=== PATIENT | male | born 1965 | race African-American/Black ===

== ENCOUNTER 2017-02-27 10:57 | Emergency (ER) | payer OTHER ==
--- NOTE | 2017-02-27 11:35 | PDOC ---
History of Present Illness - General Chief Complaint: Back Pain Stated Complaint: BACK PAIN Time Seen by Provider: 02/27/17 11:35 History Source: Patient Exam Limitations: No Limitations - History of Present Illness Initial Comments: 02/27/17 11:35 Chronic Back Pain, has an appointment with Neurology in 30 minutes, but came to ED thinking he could get an MRI for his SSI Disability hearing on . No change in his situation, being treated with robaxin and motrin. Timing/Duration: other (Ongoing for quite a long time now.) Severity: moderate Past History - Past Medical History Allergies/Adverse Reactions: Allergies Allergy/AdvReac Type Severity Reaction Status Date / Time No Known Allergies Allergy Verified 02/27/17 11:44 Home Medications: Ambulatory Orders Emtricitabine/Tenofovir [Truvada -] 1 tab PO DAILY 02/29/12 Atazanavir [Reyataz -] 200 mg PO DAILY@0800 05/14/14 Ritonavir [Norvir] 0 mg PO DAILY 05/14/14 Diazepam [Valium] 5 mg PO Q8H PRN #9 tablet MDD 15mg 11/14/15 Naproxen [Naprosyn -] 500 mg PO BID PRN #28 tablet 11/14/15 Oxycodone HCl/Acetaminophen [Percocet 5-325 mg Tablet] 1 - 2 tab PO Q6H PRN #10 tab MDD 6 11/14/15 Anemia: No Asthma: No Cancer: No Cardiac Disorders: No CVA: No COPD: No CHF: No Dementia: No Diabetes: No GI Disorders: Yes Disorders: No HTN: No Hypercholesterolemia: No Liver Disease: No Seizures: No Thyroid Disease: No - Surgical History Abdominal Surgery: No Appendectomy: No Cardiac Surgery: No Cholecystectomy: No Gastric Stapling: No GI Surgery: No Lung Surgery: No Neurologic Surgery: No Orthopedic Surgery: No - Immunization History Immunization Up to Date: Yes - Suicide/Smoking/Psychosocial Hx Smoking Status: No Smoking History: Current some day smoker Have you smoked in the past 12 months: No Number of Cigarettes Smoked Daily: 2 'Breaking Loose' booklet given: 04/27/15 Hx Alcohol Use: No Drug/Substance Use Hx: No Substance Use Type: Marijuana Hx Substance Use Treatment: No Review of Systems - Review of Systems Able to Perform ROS?: Yes Comments:: 02/27/17 11:37 Patient has to set his alarm an hour earlier than he has to get up so that he can take his medicines or else he cant get out of bed. Is the patient limited Hungarian proficient: No Constitutional: Yes: See HPI HEENTM: No: Symptoms Reported Respiratory: No: Symptoms reported Cardiac (ROS): No: Symptoms Reported ABD/GI: No: Symptoms Reported : No: Symptoms Reported Musculoskeletal: Yes: See HPI Integumentary: No: Symptoms Reported Neurological: Yes: See HPI Psychiatric: No: Anxiety, Depression Endocrine: No: Symptoms Reported Hematologic/Lymphatic: No: Symptoms Reported All Other Systems: Reviewed and Negative (patient already using a cane) *Physical Exam - Physical Exam General Appearance: Yes: Nourished, Appropriately Dressed HEENT: positive: EOMI, RADHA, Normal ENT Inspection Neck: positive: Supple Respiratory/Chest: positive: Lungs Clear, Normal Breath Sounds Cardiovascular: positive: Regular Rhythm, Regular Rate Gastrointestinal/Abdominal: positive: Normal Bowel Sounds, Flat, Soft Male Genitalia: positive: other (not done) Rectal Exam: positive: deferred Lymphatic: negative: Adenopathy, Tenderness Musculoskeletal: positive: Normal Inspection Extremity: positive: Normal Capillary Refill, Normal Inspection, Normal Range of Motion Integumentary: positive: Normal Color, Dry Neurologic: positive: Fully Oriented, Alert, Normal Mood/Affect Medical Decision Making - Medical Decision Making 02/27/17 11:42 Discussed the patient's situation, The ED does not have much if anything to offer CHRONIC PAIN. I suggested he work with his care team to resolve these ongoing issues 02/27/17 11:44 *DC/Admit/Observation/Transfer Diagnosis at time of Disposition: Chronic low back pain Qualifiers: Back pain laterality: unspecified Sciatica presence: unspecified whether sciatica present Qualified Code(s): M54.5 - Low back pain; G89.29 - Other chronic pain - Discharge Dispostion Disposition: HOME Condition at time of disposition: Improved Admit: No - Patient Instructions Printed Discharge Instructions: DI for Chronic Pain -- Adult Additional Instructions: Keep your appointment with Neurology Now
[2017-02-27] MEDS ORDERED: ONDANSETRON *ODT* 4 MG TABLET SL ONE (11:41)
[2017-02-27] MEDS ORDERED: CYCLOBENZAPRINE HCL 10 MG TABLET (FP) PO ONE (11:41)
[2017-02-27] MEDS ORDERED: ONDANSETRON *ODT* 4 MG TABLET ONE (11:47)
[2017-02-27] MEDS ORDERED: CYCLOBENZAPRINE HCL 10 MG TABLET (FP) ONE (11:47)
[2017-02-27 11:50] VITALS: BP 122/81; PULSE 60; TEMP 98.3; BMI 24.3
== END 2017-02-27 12:00 | disposition home or self-care (01) ==
LOC: JER 10:57
DX: M54.5 Low back pain (principal); G89.29 Other chronic pain; F17.210 Nicotine dependence, cigarettes, uncomplicated
CPT/HCPCS: 99282-25

== ENCOUNTER 2020-04-30 14:44 | Inpatient (IN) | payer OTHER ==
[2020-04-30 15:14] VITALS: BMI 22.1
[2020-04-30 16:33] LABS: BASO % 1.1 % (0-2.0); EOS % 3.8 % (0-4.5); HEMATOCRIT 38.6 % (35.4-49); MCH 32.3 pg (25.7-33.7); MCHC 33.6 g/dl (32.0-35.9); MEAN CELL VOLUME 96.3 fl (80-96); MEAN PLT VOLUME 8.3 fl (7.5-11.1); MONO % 14.1 % (3.8-10.2); PLATELET COUNT 252 K/MM3 (134-434); RBC 4.01 M/mm3 (4.00-5.60); RDW 13.8 % (11.9-15.9); WHITE BLOOD COUNT 5.4 K/mm3 (4.0-10.0)
[2020-04-30 16:45] LABS: INR 0.96 (0.83-1.09); PROTHROMBIN TIME (PATIENT) 11.8 SEC (9.7-13.0)
[2020-04-30 16:47] LABS: ACTIVATED PTT 29.9 SECONDS (25.2-36.5)
[2020-04-30 16:57] LABS: CHLORIDE 106 mmol/L (98-107); POTASSIUM 4.2 mmol/L (3.5-5.1); SODIUM 139 mmol/L (136-145)
[2020-04-30 17:00] LABS: CALCIUM 8.9 mg/dL (8.5-10.1)
[2020-04-30 17:01] LABS: ALBUMIN 3.5 g/dl (3.4-5.0); ANION GAP 4 MMOL/L (8-16); BLOOD UREA NITROGEN 12.9 mg/dL (7-18); CO2 28 mmol/L (21-32); GLUCOSE,RANDOM 89 mg/dL (74-106)
[2020-04-30 17:04] LABS: CREATININE 0.9 mg/dL (0.55-1.3); SGOT/AST 18 U/L (15-37); SGPT/ALT 42 U/L (13-61)
[2020-04-30 17:06] LABS: BILIRUBIN,TOTAL 0.9 mg/dL (0.2-1); TOT PROT 6.3 g/dl (6.4-8.2)
[2020-04-30 17:07] LABS: ALK PHOS 96 U/L (45-117)
[2020-04-30 17:09] LABS: N-TERMINAL BNP 30.5 pg/ml (5-125)
[2020-04-30 17:25] LABS: PLATELET ESTIMATE ADEQUATE
[2020-04-30] MEDS ORDERED: SODIUM CHLORIDE 1,000 ML IV SCH (19:00)
[2020-04-30] MEDS ORDERED: ONDANSETRON *ODT* 4 MG TABLET SL PRN (19:08)
[2020-04-30] MEDS ORDERED: HEPARIN NA (PORCINE) 5,000 UNITS/ML 1ML VIAL ONE (22:10)
[2020-04-30] MEDS: HEPARIN NA (PORCINE) 5,000 UNITS/ML 1ML VIAL SQ SCH (22:14)
[2020-05-01 05:26] LABS: URINE APPEARANCE CLEAR; URINE BILIRUBIN NEGATIVE (NEGATIVE); URINE COLOR YELLOW; URINE GLUCOSE (UA) NEGATIVE (NEGATIVE); URINE KETONE NEGATIVE (NEGATIVE); URINE LEUK ESTERASE NEGATIVE (NEGATIVE); URINE NITRITE NEGATIVE (NEGATIVE); URINE PROTEIN NEGATIVE (NEGATIVE); URINE UROBILINOGEN 0.2 mg/dL (0.2-1.0)
[2020-05-01 05:34] LABS: OPIATES, URI NEGATIVE ng/ml (CUTOFF=300); PHENCYCLIDINE,URINE NEGATIVE ng/ml (CUTOFF=25)
[2020-05-01 05:35] LABS: URINE BARBITURATES NEGATIVE ng/ml (CUTOFF=200); URINE BENZODIAZEPINES NEGATIVE ng/ml (CUTOFF=200)
[2020-05-01 05:36] LABS: METHADONE, UR NEGATIVE ng/ml (CUTOFF=300); URINE AMPHETAMINES NEGATIVE ng/ml (CUTOFF=500)
[2020-05-01 05:37] LABS: COCAINE, UR POSITIVE ng/ml (CUTOFF=300)
[2020-05-01 05:51] LABS: EOS % 3.9 % (0-4.5); HEMATOCRIT 37.3 % (35.4-49); HEMOGLOBIN 12.4 GM/dL (11.7-16.9); LYMPH % 35.7 % (8-40); MCH 31.9 pg (25.7-33.7); MCHC 33.1 g/dl (32.0-35.9); MEAN CELL VOLUME 96.2 fl (80-96); MEAN PLT VOLUME 7.7 fl (7.5-11.1); MONO % 13.4 % (3.8-10.2); PLATELET COUNT 226 K/MM3 (134-434); RBC 3.88 M/mm3 (4.00-5.60); RDW 13.9 % (11.9-15.9); WHITE BLOOD COUNT 5.9 K/mm3 (4.0-10.0)
[2020-05-01 06:09] LABS: CHLORIDE 107 mmol/L (98-107); SODIUM 142 mmol/L (136-145)
[2020-05-01 06:12] LABS: ANION GAP 6 MMOL/L (8-16); CO2 29 mmol/L (21-32); GLUCOSE,RANDOM 91 mg/dL (74-106); MAGNESIUM 2.1 mg/dL (1.8-2.4)
[2020-05-01 06:15] LABS: CREATININE 0.7 mg/dL (0.55-1.3); PHOSPHOROUS 3.9 mg/dL (2.5-4.9); SGOT/AST 16 U/L (15-37); SGPT/ALT 37 U/L (13-61)
[2020-05-01 06:16] LABS: BILIRUBIN,TOTAL 0.8 mg/dL (0.2-1); TOT PROT 5.7 g/dl (6.4-8.2)
[2020-05-01 06:17] LABS: ALK PHOS 80 U/L (45-117)
[2020-05-01] MEDS ORDERED: HEPARIN NA (PORCINE) 5,000 UNITS/ML 1ML VIAL ONE (07:06)
[2020-05-01] MEDS: HEPARIN NA (PORCINE) 5,000 UNITS/ML 1ML VIAL SQ SCH ×3 (07:13→23:00)
[2020-05-01] MEDS: EMTRICITABINE/TENOFOV ALAFENAM (DESCOVY) TABLET PO SCH (15:13)
[2020-05-01] MEDS: DOLUTEGRAVIR SODIUM 50 MG TABLET (NON-FORMULARY) PO SCH (15:13)
[2020-05-02] MEDS: HEPARIN NA (PORCINE) 5,000 UNITS/ML 1ML VIAL SQ SCH ×3 (06:08→21:14)
[2020-05-02] MEDS ORDERED: IBUPROFEN 600 MG TABLET (FP) PO PRN (06:21)
[2020-05-02] MEDS ORDERED: METHOCARBAMOL 500 MG TABLET PO ONE (06:21)
[2020-05-02] MEDS ORDERED: PT OWN MED DRAWER 7, Y5N ONE (09:31)
[2020-05-02] MEDS: EMTRICITABINE/TENOFOV ALAFENAM (DESCOVY) TABLET PO SCH (09:34)
[2020-05-02] MEDS: DOLUTEGRAVIR SODIUM 50 MG TABLET (NON-FORMULARY) PO SCH (09:34)
[2020-05-02 14:04] LABS: INR 0.95 (0.83-1.09); PROTHROMBIN TIME (PATIENT) 11.7 SEC (9.7-13.0)
[2020-05-02 14:06] LABS: ACTIVATED PTT 30.5 SECONDS (25.2-36.5)
[2020-05-02 21:50] LABS: CHOLESTEROL 172 mg/dL (50-200); TRIGLYCERIDES 134 mg/dL (0-150)
[2020-05-02 21:51] LABS: LDL CHOLESTEROL (ONLY SJRH) 88 mg/dL (5-100)
[2020-05-02 21:52] LABS: HDL CHOLESTEROL 67 mg/dL (40-60)
[2020-05-03] MEDS: HEPARIN NA (PORCINE) 5,000 UNITS/ML 1ML VIAL SQ SCH (06:53)
[2020-05-03] MEDS ORDERED: PT OWN MED DRAWER 7, Y5N ONE (09:17)
[2020-05-03] MEDS: DOLUTEGRAVIR SODIUM 50 MG TABLET (NON-FORMULARY) PO SCH (09:54)
[2020-05-03] MEDS: EMTRICITABINE/TENOFOV ALAFENAM (DESCOVY) TABLET PO SCH (09:55)
[2020-05-03 11:24] LABS: EOS % 3.4 % (0-4.5); HEMATOCRIT 39.6 % (35.4-49); HEMOGLOBIN 13.1 GM/dL (11.7-16.9); LYMPH % 26.4 % (8-40); MCH 31.6 pg (25.7-33.7); MCHC 33.2 g/dl (32.0-35.9); MEAN CELL VOLUME 95.2 fl (80-96); MEAN PLT VOLUME 8.1 fl (7.5-11.1); MONO % 13.1 % (3.8-10.2); NEUT % 56.1 % (42.8-82.8); PLATELET COUNT 262 K/MM3 (134-434); RBC 4.16 M/mm3 (4.00-5.60); RDW 14.2 % (11.9-15.9); WHITE BLOOD COUNT 5.7 K/mm3 (4.0-10.0)
[2020-05-03 11:39] LABS: POTASSIUM 4.1 mmol/L (3.5-5.1)
[2020-05-03 11:43] LABS: CALCIUM 9.2 mg/dL (8.5-10.1)
[2020-05-03 11:44] LABS: ALBUMIN 3.5 g/dl (3.4-5.0); BLOOD UREA NITROGEN 14.2 mg/dL (7-18); MAGNESIUM 2.3 mg/dL (1.8-2.4)
[2020-05-03 11:47] LABS: CREATININE 0.9 mg/dL (0.55-1.3)
[2020-05-03 11:49] LABS: BILIRUBIN,TOTAL 0.3 mg/dL (0.2-1); TOT PROT 6.4 g/dl (6.4-8.2)
[2020-05-03 18:22] VITALS: BP 130/77; PULSE 71; TEMP 98.3
== END 2020-05-03 18:25 | disposition home or self-care (01) | DRG 204 ==
LOC: JER 14:44 → OBSVTOIN 19:37 → JERBED 19:37 → J4W 05-01 11:51 → J4S 05-01 22:16
PROVIDERS: ADMIT Internal Medicine; ATTEND Nurse Practitioner Family
DX: R55 Syncope and collapse (principal); R07.9 Chest pain, unspecified; M25.471 Effusion, right ankle; Z21 Asymptomatic human immunodeficiency virus [HIV] infection status; M54.9 Dorsalgia, unspecified; G89.29 Other chronic pain; I10 Essential (primary) hypertension; G93.5 Compression of brain; W18.39XA Other fall on same level, initial encounter; Y93.89 Activity, other specified; Y92.230 Patient room in hospital as the place of occurrence of the external cause; Z79.01 Long term (current) use of anticoagulants; R63.4 Abnormal weight loss; R11.2 Nausea with vomiting, unspecified; F17.210 Nicotine dependence, cigarettes, uncomplicated
CPT/HCPCS: 36415; 70450-TC; 71045-TC-FY; 74177-TC; 80053; 80061; 80307; 81003; 82272; 82550; 83036; 83721; 83735; 83880; 84100; 84436; 84443; 84479; 84484; 85025; 85610; 85730; 86780; 93005; 93010; 93306-TC; 93880-TC; 93970-TC; 96360; 96372; 97116-GP; 97161-GP; 99285-25; C9803; G0378; J1644; Q0162; Q9967; U0003